=== PATIENT | male | born 1970 | race Caucasian/White ===

== ENCOUNTER 2018-09-11 10:28 | Inpatient (IN) | payer OTHER ==
[~2018-09-11] VITALS: Ht 170.1 cm; Wt 68.0 kg
--- NOTE | ~2018-09-11 | EKG ---
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
[~2018-09-11 10:28] MED LIST: CITALOPRAM HYDR10 MG PO; LISINOPRIL10 M1 PO; Magnesium Oxid400 MG PO; NATURE'S BLEND F1 MG PO; NEURONTIN300 MG PO
[2018-09-11 10:29] VITALS: BP 149/103
[2018-09-11 11:00] VITALS: BP 128/84
[2018-09-11 11:25] LABS: BASO % 0.6 % (0.0-1.0); EOS % 0.8 % (1.0-4.0); HEMATOCRIT 43.5 % (42.0-52.0); HEMOGLOBIN 14.7 g/dl (14.0-18.0); LYMPH # 0.8 10*3/uL (1.3-4.4); LYMPH % 15.6 % (27.0-41.0); MEAN CORPUSCULAR HGB 33.8 pg (27.0-31.0); MEAN CORPUSCULAR HGB CONC 33.8 g/dl (33.0-37.0); MEAN PLATELET VOLUME 10.6 fl (9.6-12.3); MONO # 0.6 10*3/uL (0.1-1.0); NEUT # 3.6 10*3/uL (2.3-7.9); NEUT % 70.8 % (47.0-73.0); PLATELET COUNT AUTOMATED 90 10*3/uL (130-400); RED BLOOD COUNT 4.35 10*6/uL (4.50-5.90); WHITE BLOOD COUNT 5.1 10*3/uL (4.8-10.8)
[2018-09-11 11:34] LABS: BILIRUBIN NEGATIVE (NEGATIVE); BLOOD NEGATIVE (NEGATIVE); CLARITY SL CLOUDY (CLEAR); COLOR YELLOW (YELLOW); GLUCOSE NEGATIVE (NEGATIVE); KETONE NEGATIVE (NEGATIVE); LEUKO ESTERASE NEGATIVE (NEGATIVE); NITRITE NEGATIVE (NEGATIVE); PH 5.5 (5.0-9.0); SPECIFIC GRAVITY <= 1.005 (1.005-1.030); URINE AMPHETAMINES < 1000 (1000ng/ml); URINE BARBITURATES < 200 (200ng/ml); URINE BENZODIAZEPINES < 200 (200ng/ml); URINE CANNABINOIDS (THC) > 50 (50ng/ml); URINE COCAINE < 300 (300ng/ml); URINE METHADONE < 300 (300ng/ml); URINE OPIATES < 300 (300ng/ml); UROBILINOGEN 0.2 E.U./dl (0.2-1.0)
[2018-09-11 11:35] LABS: URINE PHENCYCLIDINE < 25 (25ng/ml)
[2018-09-11 11:42] LABS: ALBUMIN 3.8 gm/dl (3.1-4.5); ALKALINE PHOSPHATASE 172 U/L (45-117); BUN 4 mg/dl (7-24); CHLORIDE 106 mmol/L (98-107); CREATININE 0.62 mg/dL (0.70-1.30); POTASSIUM 3.8 mmol/L (3.5-5.1); SGOT/AST 148 IU/L (3-35); SGPT/ALT 84 U/L (12-78); SODIUM 138 mmol/L (136-145); TOTAL PROTEIN 7.7 gm/dL (6.4-8.2)
[2018-09-11 11:46] LABS: ACETAMINOPHEN (TYLENOL) < 5.0 ug/ml (10-30)
[2018-09-11 12:00] LABS: BACTERIA TRACE; RBC 0-2 rbc/hpf (0-2); WBC 0-2 wbc/hpf (0-5)
[2018-09-11 13:10] VITALS: BP 140/93
[2018-09-11 16:00] VITALS: BP 112/64
[2018-09-11 20:00] VITALS: BP 157/94
[2018-09-12] VITALS: BP 154/90
[2018-09-12 04:15] VITALS: BP 156/90
[2018-09-12 08:00] VITALS: BP 154/90
[2018-09-12 12:00] VITALS: BP 150/90
[2018-09-12 16:33] VITALS: BP 168/98
[2018-09-12 20:00] VITALS: BP 150/96
[2018-09-13] VITALS: BP 144/100
[2018-09-13 08:00] VITALS: BP 148/96
== END 2018-09-13 11:05 | disposition left against medical advice (07) | DRG 894 ==
LOC: ED 10:28 → EDHOLD 12:39 → 4E 12:41
PROVIDERS: Physician Assistant; ADMIT Internal Medicine
DX: F10.239 Alcohol dependence with withdrawal, unspecified (principal); I10 Essential (primary) hypertension; Z71.6 Tobacco abuse counseling; D69.6 Thrombocytopenia, unspecified; D72.810 Lymphocytopenia; D75.89 Other specified diseases of blood and blood-forming organs; Y90.9 Presence of alcohol in blood, level not specified; F17.210 Nicotine dependence, cigarettes, uncomplicated; Z53.20 Procedure and treatment not carried out because of patient's decision for unspecified reasons; R74.0 Nonspecific elevation of levels of transaminase and lactic acid dehydrogenase [LDH]; E83.51 Hypocalcemia; R73.9 Hyperglycemia, unspecified; Z80.1 Family history of malignant neoplasm of trachea, bronchus and lung